=== PATIENT | male | born 2000 | race American Indian/Alaskan Native ===

== ENCOUNTER 2022-02-13 16:08 | Emergency (ER) | payer SELFPAY ==
[2022-02-13 21:45] LABS: Bilirubin,Urine Negative (Negative); Color,Urine Yellow (Yellow)
[2022-02-13 21:46] LABS: Blood,Urine Trace (Negative)
[2022-02-13 21:47] LABS: Urobilinogen,Urine 0.2 mg/dL (<2.0)
[2022-02-13] MEDS ORDERED: LIDOCAINE-MPF (1%) 10 MG/1 ML VIAL 5 ML INFILTRATI ONE (21:54)
[2022-02-13] MEDS ORDERED: PHENAZOPYRIDINE 200 MG TAB PO ONE (21:54)
[2022-02-13] MEDS ORDERED: diphenhydrAMINE 25 MG CAP PO ONE (21:54)
[2022-02-13] MEDS ORDERED: IBUPROFEN 600 MG TAB PO ONE (21:54)
[2022-02-13 21:55] LABS: Mucus,Urine 1+ /HPF
[2022-02-13 21:56] LABS: WBC,Urine > 182.0 /HPF (0.0-6.0)
--- NOTE | 2022-02-13 22:15 | Emergency Department Report ---
ED Male HPI - General Chief complaint: Abdominal Pain Stated complaint: PAIN IN BLADDER/CHEST PAIN/CANT USE BATHROOM Source: patient Mode of arrival: Ambulatory Limitations: No Limitations - History of Present Illness Initial comments: Patient is a 21-year-old -[place] male with no past medical history presents to the ED with complaint of acute onset persistent dysuria, suprapubic pressure, persistent penile discharge that he describes as purulent with malodorous smell for the last 1 week after having unprotected sexual intercourse. Patient states that in the last 24 hours the pain has worsened with increasingly heavier penile discharge. Patient denies dizziness, syncope, chest pain, shortness of breath, abdominal pain, testicular pain, hematuria, low back pain, fever, chills, cough, sore throat or diarrhea, nausea and vomiting. MD Complaint: penile discharge, dysuria, other (Low back pain, suprapubic pressure) -: week(s) (1) Location: penis Radiation: none Severity: moderate Severity scale (0 -10): 5 Quality: aching, burning Consistency: constant Improves with: none Worsens with: urination new medication discharge, dysuria. denies: swelling, mass, fever, nausea/vomiting, incontinence - Related Data Previous Rx's Medication Instructions Recorded Last Taken Type Doxycycline Hyclate 100 mg PO Q12H #20 cap 02/13/22 Unknown Rx Ibuprofen [Motrin] 600 mg PO Q8H PRN #20 tablet 02/13/22 Unknown Rx Phenazopyridine [Pyridium] 200 mg PO BID #14 tab 02/13/22 Unknown Rx Allergies Allergy/AdvReac Type Severity Reaction Status Date / Time Penicillins Allergy Unknown Verified 02/13/22 17:01 ED Review of Systems ROS: Stated complaint: PAIN IN BLADDER/CHEST PAIN/CANT USE BATHROOM Other details as noted in HPI Constitutional: denies: chills, fever Eyes: denies: eye pain, eye discharge, vision change ENT: denies: ear pain, throat pain, dental pain, hearing loss, congestion, other Respiratory: denies: cough, shortness of breath, wheezing Cardiovascular: denies: chest pain, palpitations Endocrine: no symptoms reported Gastrointestinal: denies: abdominal pain, nausea, vomiting, diarrhea Genitourinary: urgency, dysuria, frequency, discharge. denies: hematuria, testicular pain, testicular mass Musculoskeletal: denies: back pain, joint swelling, arthralgia Skin: denies: rash, lesions Neurological: denies: headache, weakness, paresthesias Psychiatric: denies: anxiety, depression Hematological/Lymphatic: denies: easy bleeding, easy bruising ED Past Medical Hx - Medications Home Medications: Home Medications Medication Instructions Recorded Confirmed Last Taken Type Doxycycline Hyclate 100 mg PO Q12H #20 cap 02/13/22 Unknown Rx Ibuprofen [Motrin] 600 mg PO Q8H PRN #20 tablet 02/13/22 Unknown Rx Phenazopyridine [Pyridium] 200 mg PO BID #14 tab 02/13/22 Unknown Rx ED Physical Exam - General Limitations: No Limitations General appearance: alert, in no apparent distress - Head Head exam: Present: atraumatic, normocephalic, normal inspection - Eye Eye exam: Present: normal appearance, PERRL, EOMI Pupils: Present: normal accommodation - ENT ENT exam: Present: normal exam, normal orophraynx, mucous membranes moist, TM's normal bilaterally, normal external ear exam - Neck Neck exam: Present: normal inspection, full ROM. Absent: tenderness - Respiratory Respiratory exam: Present: normal lung sounds bilaterally. Absent: respiratory distress, wheezes, rales, rhonchi, chest wall tenderness, accessory muscle use, decreased breath sounds - Cardiovascular Cardiovascular Exam: Present: regular rate, normal rhythm, normal heart sounds. Absent: systolic murmur, diastolic murmur, rubs, gallop - GI/Abdominal GI/Abdominal exam: Present: soft, normal bowel sounds. Absent: tenderness, guarding, rebound, rigid, hyperactive bowel sounds, organomegaly, mass, bruit - External exam: Present: other (Genital exam deferred per patient's request) - Extremities Exam Extremities exam: Present: normal inspection, full ROM, normal capillary refill. Absent: tenderness - Back Exam Back exam: Present: normal inspection, full ROM. Absent: tenderness, CVA tenderness (R), CVA tenderness (L), muscle spasm, paraspinal tenderness, vertebral tenderness - Neurological Exam Neurological exam: Present: alert, oriented X3, CN II-XII intact, normal gait, reflexes normal - Psychiatric Psychiatric exam: Present: normal affect, normal mood - Skin Skin exam: Present: warm, dry, intact, normal color. Absent: rash ED Course Vital Signs 02/13/22 16:55 Temperature 98.5 F Pulse Rate 78 Blood Pressure 126/71 [Right] O2 Sat by Pulse 99 Oximetry ED Medical Decision Making - Medical Decision Making This is a 21-year-old -[place] male with no past medical history presents to the ED with complaint of acute onset persistent dysuria, suprapubic pressure, persistent penile discharge that he describes as purulent with malodorous smell for the last 1 week after having unprotected sexual intercourse. Patient states that in the last 24 hours the pain has worsened with increasingly heavier penile discharge. In the ED, patient is alert and oriented x3 and is not in any distress. Patient was treated empirically for gonorrhea based on his symptoms. Urinalysis showed significant infection consistent with gonorrhea or chlamydia infection. Patient was discharged home on antibiotics and advised to observe safe sexual practices and and to have his sexual partner treated at the [facility] for the same. Patient was also advised to follow-up with the [facility] for further STD testing including HIV and syphilis. Patient was advised to return to the ED immediately if symptoms get worse - Differential Diagnosis Gonorrhea urethritis; chlamydia urethritis; trichomonas urethritis; STD Critical care attestation.: If time is entered above; I have spent that time in minutes in the direct care of this critically ill patient, excluding procedure time. ED Disposition Clinical Impression: Urethritis due to Chlamydia trachomatis, Urethritis, gonococcal, acute, STD (sexually transmitted disease), Acute urinary tract infection Disposition: 01 HOME / SELF CARE / HOMELESS Is pt being admited?: No Does the pt Need Aspirin: No Condition: Stable Instructions: Gonococcal Urethritis (ED), Urinary Tract Infection, Adult, [id number], Chlamydia, Male, Gonorrhea Additional Instructions: Urinalysis showed significant infection consistent with sexually transmitted disease including Chlamydia and gonorrhea. Take medication with food, drink plenty of fluids, follow-up with the [facility] for further STD testing including HIV and syphilis. Ensure that your sexual partners also get tested and treated for the same. Observe safe sexual practices. Return to the ED immediately if symptoms get worse. Prescriptions: Doxycycline Hyclate 100 mg PO Q12H #20 cap Ibuprofen [Motrin] 600 mg PO Q8H PRN #20 tablet PRN Reason: Pain Phenazopyridine [Pyridium] 200 mg PO BID #14 tab Referrals: [facility] [Outside] - 7-10 days Time of Disposition: 22:16 Print Language: BOLIVIAN
[2022-02-13 23:17] VITALS: BP 128/74
== END 2022-02-13 22:52 | disposition home or self-care (01) ==
LOC: ED 16:08
DX: A56.01 Chlamydial cystitis and urethritis (principal); A54.01 Gonococcal cystitis and urethritis, unspecified; N39.0 Urinary tract infection, site not specified; A64 Unspecified sexually transmitted disease; Z88.0 Allergy status to penicillin; Z79.899 Other long term (current) drug therapy
CPT/HCPCS: 81001; 96372; 99283; J0696; J3490